=== PATIENT | male | born 1990 | race Caucasian/White ===

== ENCOUNTER 2023-12-19 09:45 | Emergency (ER) | payer MEDICAID ==
[~2023-12-19] VITALS: Ht 175.3 cm; Wt 72.6 kg
[~2023-12-19 09:45] MED LIST: IBUP-1842 PO; LEVO750T75 PO
[2023-12-19 09:57] VITALS: BP 119/77; PULSE 68; RESP 18; TEMP 98.1; O2SAT 98
[2023-12-19] MEDS ORDERED: IBUP-2213 PO (12:06)
[2023-12-19 12:21] VITALS: BP 119/77; PULSE 68; RESP 18; TEMP 98.1; O2SAT 98
== END 2023-12-19 11:12 | disposition home or self-care (01) ==
LOC: MED 09:45
DX: S61.531A Puncture wound without foreign body of right wrist, initial encounter (principal); X58.XXXA Exposure to other specified factors, initial encounter; Y93.89 Activity, other specified; Y92.89 Other specified places as the place of occurrence of the external cause; Y99.8 Other external cause status
CPT/HCPCS: 73110; 99283